=== PATIENT | female | born 1995 | race Native Hawaiian/Other Pacific Islander ===

== ENCOUNTER 2017-08-07 11:07 | Inpatient (IN) | payer SELFPAY ==
[2017-08-07] VITALS (10 sets, daily range): BP systolic 102–140; BP diastolic 58–85; PULSE 68–108; RESP 12–14; TEMP 92.7–98.2; O2SAT 100
[~2017-08-07] VITALS: Ht 165.1 cm; Wt 67.3 kg
[2017-08-07] MEDS ORDERED: PROPOFOL 1000 MG/100 ML INJ 100 ML ONE (11:15)
[2017-08-07] MEDS ORDERED: ROCURONIUM INJ 50 MG/5 ML VIAL ONE (11:16)
[2017-08-07] MEDS ORDERED: DIPHTH/TETANUS/ACEL PERTUSSIS (BOOSTER) 0.5 ML VIAL/PFS IM ONE (11:18)
[2017-08-07] MEDS ORDERED: ceFAZolin 2 GM PREMIX 50 ML ONE (11:18)
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
[2017-08-07] MEDS ORDERED: IOHEXOL 350 MG/ML 10 ML VIAL (for RAD DIAG) IVCONTRAST ONE (11:38)
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
[2017-08-07 11:49] LABS: AUTOMATED NEUTROPHIL # 8.5 TH/MM3 (1.8-7.7); BASOPHIL % 0.2 % (0.0-2.0); EOSINOPHIL % 0.2 % (0.0-4.0); HEMATOCRIT 21.9 % (35.0-46.0); LYMPH % 42.7 % (9.0-44.0); LYMPHOCYTE # 6.5 TH/MM3 (1.0-4.8); MEAN CELL VOLUME 62.1 FL (80.0-100.0); MEAN CORPUSCULAR HEMOGLOBIN 18.5 PG (27.0-34.0); MEAN PLATELET VOLUME 8.7 FL (7.0-11.0); MONO % 1.1 % (0.0-8.0); MONOCYTE # 0.2 TH/MM3 (0-0.9); NEUT % 55.8 % (16.0-70.0); PLATELET COUNT 288 TH/MM3 (150-450); RED BLOOD COUNT 3.53 MIL/MM3 (4.00-5.30); RED CELL DISTRIBUTION WIDTH 15.3 % (11.6-17.2); WHITE BLOOD COUNT 15.3 TH/MM3 (4.0-11.0)
[2017-08-07 11:51] LABS: MEAN CORPUSCULAR HGB CONC 29.8 % (32.0-36.0)
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
[2017-08-07 11:52] LABS: HEMOGLOBIN 6.5 GM/DL (11.6-15.3)
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
[2017-08-07] MEDS ORDERED: NORMOSOL R INJ 2,000 ML IV ONE (12:00)
[2017-08-07] MEDS ORDERED: ROCURONIUM INJ 50 MG/5 ML SYRINGE IV PUSH ONE (12:00)
[2017-08-07] MEDS ORDERED: SODIUM CHLORID 0.9% 500 ML INJ 500 ML IV ONE (12:00)
[2017-08-07] MEDS ORDERED: PHENYLEPH/NS 1000 MCG/10 ML SYR IV ONE (12:00)
[2017-08-07] MEDS ORDERED: LACTATED RINGER'S 1000 ML INJ 2,000 ML IV ONE (12:00)
[2017-08-07] MEDS ORDERED: PHENYLEPHRINE HCL 10 MG/ML VIAL IV ONE (12:00)
[2017-08-07 12:04] LABS: INTERNATIONAL NORMALIZED RATIO 1.3 RATIO; PROTHROMBIN TIME - PATIENT 13.6 SEC (9.8-11.6)
[2017-08-07] MEDS ORDERED: SODIUM CHLORIDE 0.9% IV ONE (12:05)
[2017-08-07] MEDS ORDERED: TRANEXAMIC ACID IV ONE (12:05)
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
[2017-08-07] MEDS ORDERED: SODIUM BICARBONATE 8.4% INJ 50 MEQ/50 ML SYR ONE ×3 (12:26→13:29)
[2017-08-07 12:28] LABS: BANDS 10 % (0-6); LYMPHOCYTES 38 % (9-44); MONOCYTES 1 % (0-8); NEUTROPHIL # MANUAL DIFF 9.3 TH/MM3 (1.8-7.7); OVALOCYTES 2+ (NORMAL); POLYS (SEG NEUTROPHILS) 51 % (16-70); TEARDROP RBCS 1+ (NORMAL)
[2017-08-07] MEDS ORDERED: PIPERACIL-TAZO 3.375 GM PREMIX 50 ML IV ONE (12:30)
[2017-08-07 13:02] LABS: INTERNATIONAL NORMALIZED RATIO 1.3 RATIO; PROTHROMBIN TIME - PATIENT 13.3 SEC (9.8-11.6)
[2017-08-07] MEDS ORDERED: DO NOT ADM ANY ANTICOAGULANT DRUGS PRN (13:28)
[2017-08-07] MEDS: PROPOFOL 1000 MG/100 ML IV PRN ×3 (13:30→18:30)
[2017-08-07 13:42] LABS: AUTOMATED NEUTROPHIL # 6.5 TH/MM3 (1.8-7.7); BASOPHIL % 0.1 % (0.0-2.0); EOSINOPHIL % 0.1 % (0.0-4.0); HEMATOCRIT 26.6 % (35.0-46.0); HEMOGLOBIN 9.1 GM/DL (11.6-15.3); LYMPH % 22.5 % (9.0-44.0); MEAN CELL VOLUME 76.5 FL (80.0-100.0); MEAN CORPUSCULAR HEMOGLOBIN 26.1 PG (27.0-34.0); MEAN CORPUSCULAR HGB CONC 34.2 % (32.0-36.0); MEAN PLATELET VOLUME 8.2 FL (7.0-11.0); MONO % 2.7 % (0.0-8.0); MONOCYTE # 0.2 TH/MM3 (0-0.9); NEUT % 74.6 % (16.0-70.0); PLATELET COUNT 107 TH/MM3 (150-450); RED BLOOD COUNT 3.48 MIL/MM3 (4.00-5.30); WHITE BLOOD COUNT 8.7 TH/MM3 (4.0-11.0)
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
[2017-08-07 14:09] LABS: OVALOCYTES 1+ (NORMAL)
[2017-08-07] MEDS ORDERED: MIDAZOLAM HCL 2 MG/2 ML VIAL ONE (14:35)
[2017-08-07] MEDS ORDERED: CALCIUM CHLORIDE INJ 2 GM in DEXTROSE 5% IN WATER 100ML INJ 100 ML IV ONE ×4 (15:00→18:00)
[2017-08-07 15:14] LABS: HEMATOCRIT 40.7 % (35.0-46.0); HEMOGLOBIN 14.4 GM/DL (11.6-15.3); MEAN CELL VOLUME 74.7 FL (80.0-100.0); MEAN CORPUSCULAR HEMOGLOBIN 26.4 PG (27.0-34.0); MEAN CORPUSCULAR HGB CONC 35.4 % (32.0-36.0); MEAN PLATELET VOLUME 8.1 FL (7.0-11.0); PLATELET COUNT 127 TH/MM3 (150-450); RED BLOOD COUNT 5.46 MIL/MM3 (4.00-5.30); WHITE BLOOD COUNT 8.2 TH/MM3 (4.0-11.0)
[2017-08-07 15:30] LABS: ALBUMIN 3.4 GM/DL (3.4-5.0); BICARBONATE 22.8 MEQ/L (21.0-32.0); CALCIUM 6.4 MG/DL (8.5-10.1); CREATININE 0.97 MG/DL (0.50-1.00); MAGNESIUM 1.8 MG/DL (1.5-2.5); PHOSPHORUS 1.7 MG/DL (2.5-4.9)
[2017-08-07] MEDS: fentaNYL DRIP 250 ML IV PRN (15:30)
[2017-08-07 15:32] LABS: TOTAL BILIRUBIN ADULT 1.7 MG/DL (0.2-1.0); TOTAL PROTEIN 7.1 GM/DL (6.4-8.2)
[2017-08-07 15:35] LABS: CALCIUM-PROTEIN CORRECTED 6.4 MG/DL (8.5-10.1)
[2017-08-07] MEDS ORDERED: SODIUM CHLOR 0.9% 1000 ML INJ 1,000 ML IV ONE (16:00)
[2017-08-07] MEDS ORDERED: ICU - D/C ICU ELECTROLYTE ORDERS PRN (16:15)
[2017-08-07] MEDS ORDERED: ICU - MAGNESIUM SULFATE 2 GM/NS 100 ML IV PRN ×2 (16:15)
[2017-08-07] MEDS ORDERED: ICU - MAGNESIUM OXIDE 400 MG TAB PO PRN (16:15)
[2017-08-07] MEDS ORDERED: ICU - POTASSIUM PHOSPHATE 30 MMOL/NS 250 ML IV PRN ×2 (16:15)
[2017-08-07] MEDS ORDERED: ICU - POTASSIUM PHOSPHATE MONOBASIC 500 MG TAB PO PRN (16:15)
[2017-08-07] MEDS ORDERED: ICU - SODIUM PHOSPHATE 30 MMOL/NS 250 ML IV PRN ×2 (16:15)
[2017-08-07] MEDS ORDERED: ICU - POTASSIUM CHLORIDE/AQUEOUS SOLN 20 MEQ/100 ML IVPB IV PRN (16:15)
[2017-08-07] MEDS ORDERED: POTASSIUM CHLORIDE 25 MEQ EFFERVESCENT TAB PO PRN (16:15)
[2017-08-07] MEDS ORDERED: ICU - MAGNESIUM SULFATE 4 GM/NS 100 ML IV PRN ×2 (16:15)
[2017-08-07] MEDS ORDERED: ICU - CALL ORDERING PHYSICIAN PRN (16:15)
[2017-08-07] MEDS: SODIUM CHLOR 0.9% 1000 ML INJ 1,000 ML IV SCH (16:32)
[2017-08-07] MEDS: ICU - POTASSIUM CHLORIDE/AQUEOUS SOLN 40 MEQ/100 ML IVPB IV PRN ×2 (16:33→22:29)
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
[2017-08-07] MEDS ORDERED: ROCURONIUM INJ 50 MG/5 ML VIAL IV PRN (17:00)
[2017-08-07] MEDS ORDERED: PROPOFOL 1000 MG/100 ML INJ 100 ML IV PRN (17:15)
[2017-08-07] MEDS: PANTOPRAZOLE SODIUM 40 MG VIAL IV PUSH SCH (17:15)
[2017-08-07] MEDS: PIPERACIL-TAZO 4.5 GM PREMIX 100 ML IV SCH ×2 (18:00→23:54)
[2017-08-07] MEDS ORDERED: NOREPINEPHRINE 4 MG/D5W 250 ML IV PRN (18:00)
[2017-08-07] MEDS: CHLORHEXIDINE 0.12% (ORAL KIT) 15 ML CUP MT SCH (20:00)
[2017-08-07 20:17] LABS: ALKALINE PHOSPHATASE 72 U/L (45-117); ALT (GPT) 520 U/L (10-53); AST (GOT) 855 U/L (15-37); BICARBONATE 22.8 MEQ/L (21.0-32.0); BLOOD UREA NITROGEN 9 MG/DL (7-18); CALCIUM 7.5 MG/DL (8.5-10.1); CHLORIDE 113 MEQ/L (98-107); CREATININE 0.92 MG/DL (0.50-1.00); GLOMERULAR FILTRATION RATE 53 ML/MIN (>89); GLUCOSE,RANDOM 115 MG/DL (74-106); SODIUM (NA) 148 MEQ/L (136-145); TOTAL BILIRUBIN ADULT 2.1 MG/DL (0.2-1.0)
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
[2017-08-08] VITALS (13 sets, daily range): BP systolic 94–118; BP diastolic 54–69; PULSE 70–108; RESP 14; TEMP 97–99.1; O2SAT 99–100
[2017-08-08] MEDS: PROPOFOL 1000 MG/100 ML IV PRN ×3 (02:39→11:30)
[2017-08-08] MEDS: SODIUM CHLOR 0.9% 1000 ML INJ 1,000 ML IV SCH ×3 (05:52→22:01)
[2017-08-08] MEDS: PIPERACIL-TAZO 4.5 GM PREMIX 100 ML IV SCH ×3 (05:52→19:00)
--- NOTE | 2017-08-08 06:22 | RADRPT ---
EXAM DATE/TIME: 08/08/2017 04:36 [facility] COMPARISON: CT ABDOMEN & PELVIS W CONTRAST, August 07, 2017, 11:21. CHEST SINGLE AP, August 07, 2017, 13:35. INDICATIONS : Shortness of breath. MEDICAL HISTORY : Unobtainable. SURGICAL HISTORY : Unobtainable. ENCOUNTER: Subsequent ACUITY: 2 days PAIN SCORE: Non-responsive. LOCATION: Bilateral chest FINDINGS: Portable AP view of the chest demonstrates a normal-sized cardiac silhouette. ETT, right IJ line, and nasogastric tube remain present. EKG lines overlie the patient. Lungs are underinflated with mild at electasis at the lung bases. No effusion or pneumothorax is identified. The bones demonstrate no acut e abnormality. Multiple ribbonlike areas of high density are visualized in the upper and mid abdomen, likely 4 in total. CONCLUSION: 1. Mild atelectasis at the lung bases. Otherwise, no acute cardiopulmonary abnormality is identified. 2. There are 4 ribbonlike densities overlying the abdomen, the 2 superior ones are stable from yester day's examination. These represent retained surgical sponges. Given the patient's trauma and recent s urgery these may have been left intentionally but suggest correlating clinically. Ramon Roy MD on August 08, 2017 at 6:18 Board Certified Radiologist. This report was verified electronically.
[2017-08-08 06:37] LABS: AUTOMATED NEUTROPHIL # 7.3 TH/MM3 (1.8-7.7); BASOPHIL % 0.1 % (0.0-2.0); EOSINOPHIL % 0.2 % (0.0-4.0); HEMATOCRIT 39.2 % (35.0-46.0); HEMOGLOBIN 13.6 GM/DL (11.6-15.3); LYMPH % 13.2 % (9.0-44.0); LYMPHOCYTE # 1.2 TH/MM3 (1.0-4.8); MEAN CELL VOLUME 74.9 FL (80.0-100.0); MEAN CORPUSCULAR HGB CONC 34.8 % (32.0-36.0); MEAN PLATELET VOLUME 8.5 FL (7.0-11.0); MONOCYTE # 0.5 TH/MM3 (0-0.9); NEUT % 80.5 % (16.0-70.0); PLATELET COUNT 129 TH/MM3 (150-450); RED BLOOD COUNT 5.23 MIL/MM3 (4.00-5.30); RED CELL DISTRIBUTION WIDTH 25.1 % (11.6-17.2)
[2017-08-08 06:54] LABS: ALBUMIN 2.8 GM/DL (3.4-5.0); AST (GOT) 732 U/L (15-37); BICARBONATE 19.8 MEQ/L (21.0-32.0); BLOOD UREA NITROGEN 8 MG/DL (7-18); CALCIUM 7.8 MG/DL (8.5-10.1); CHLORIDE 114 MEQ/L (98-107); CREATININE 0.89 MG/DL (0.50-1.00); GLOMERULAR FILTRATION RATE 55 ML/MIN (>89); GLUCOSE,RANDOM 98 MG/DL (74-106); SODIUM (NA) 146 MEQ/L (136-145)
[2017-08-08 06:55] LABS: ALT (GPT) 508 U/L (10-53)
[2017-08-08 06:57] LABS: ALKALINE PHOSPHATASE 83 U/L (45-117); TOTAL BILIRUBIN ADULT 3.1 MG/DL (0.2-1.0); TOTAL PROTEIN 5.9 GM/DL (6.4-8.2)
[2017-08-08 07:24] LABS: BANDS 12 % (0-6); LYMPHOCYTES 12 % (9-44); MONOCYTES 2 % (0-8); NEUTROPHIL # MANUAL DIFF 7.7 TH/MM3 (1.8-7.7); POLYS (SEG NEUTROPHILS) 74 % (16-70)
[2017-08-08] MEDS: CHLORHEXIDINE 0.12% (ORAL KIT) 15 ML CUP MT SCH ×2 (08:46→20:00)
[2017-08-08] MEDS: MAGNESIUM HYDROXIDE SUSP 30 ML CUP PO SCH ×2 (08:46→21:00)
[2017-08-08] MEDS: DOCUSATE SODIUM 50 MG/SENNA 8.6 MG TAB PO SCH ×2 (08:46→21:00)
[2017-08-08] MEDS: PANTOPRAZOLE SODIUM 40 MG VIAL IV PUSH SCH ×2 (08:46→21:40)
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
--- NOTE | 2017-08-08 09:06 | RADRPT ---
EXAM DATE/TIME: 08/07/2017 11:21 [facility] COMPARISON: No previous studies available for comparison. INDICATIONS : Facial fractures CTDIvol (mGy) ; Reconstructed from previous dataset, no dose MEDICAL HISTORY : None SURGICAL HISTORY : None. ENCOUNTER: Initial ACUITY: 1 day PAIN SCALE: Non-responsive LOCATION: facial FINDINGS: 3-D reconstructions were obtained of the face. The fracture through the angle of the mandible. His of fracture of the coronoid process on the left with amenable dislocated anteriorly. The right side of the mandible is intact. Maxilla and orbital rims are intact CONCLUSION: Fractured end of the mandible and coronoid left process. The mandible is dislocated anteriorly. Kg Ibanez MD FACR on August 08, 2017 at 9:02 Board Certified Radiologist. This report was verified electronically.
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
[2017-08-08] MEDS ORDERED: PHENYLEPH/NS 1000 MCG/10 ML SYR IV ONE (12:00)
[2017-08-08] MEDS ORDERED: LACTATED RINGER'S 1000 ML INJ 1,000 ML IV ONE (12:00)
[2017-08-08] MEDS ORDERED: VECURONIUM BROMIDE 10 MG VIAL IV ONE (12:00)
[2017-08-08] MEDS ORDERED: SODIUM CHLORIDE 0.9% 20 ML VIAL IV ONE (12:00)
[2017-08-08] MEDS ORDERED: DEXAMETHASONE SOD PHOS 4 MG/ML VIAL IV ONE (12:00)
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
[2017-08-08] MEDS: fentaNYL DRIP 250 ML IV PRN (14:21)
[2017-08-08] MEDS ORDERED: LIDOCAINE 1%/EPINEPHrine 1:100,000 SOLN 30 ML VIAL ONE (14:32)
[2017-08-08] MEDS ORDERED: CHLORHEXIDINE GLUCONATE 0.12% 15 ML CUP ONE (14:32)
[2017-08-08] MEDS ORDERED: BUPIVACAINE/EPINEPHRINE 0.25% 50 ML VIAL ONE (14:51)
[2017-08-08] MEDS ORDERED: BALANCED SALT SOLN OPHT IRRIG 15 ML BTL ONE (14:51)
[2017-08-08] MEDS ORDERED: BACITRACIN TOP OINT 15 GM TUBE ONE (14:51)
--- NOTE | 2017-08-08 17:05 | RADRPT ---
EXAM DATE/TIME: 08/08/2017 16:34 [facility] COMPARISON: CT ABDOMEN & PELVIS W CONTRAST, August 07, 2017, 11:21. INDICATIONS : Instrument count. MEDICAL HISTORY : None. SURGICAL HISTORY : None. ENCOUNTER: Initial ACUITY: 1 day PAIN SCORE: Non-responsive. LOCATION: abdomen. FINDINGS: Negative for radiopaque foreign body. Surgical drain evident. CONCLUSION: Negative for radiopaque foreign body Kg Ibanez MD FACR on August 08, 2017 at 16:53 Board Certified Radiologist. This report was verified electronically.
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
[2017-08-08] MEDS ORDERED: MIDAZOLAM HCL 2 MG/2 ML VIAL ONE (20:36)
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
[2017-08-08] MEDS: methylPREDNISolone SOD SUCC 125 MG/2 ML VIAL IV PUSH SCH (21:40)
[2017-08-09] VITALS (17 sets, daily range): BP systolic 92–118; BP diastolic 56–82; PULSE 60–84; RESP 11–14; TEMP 96.8–98.7; O2SAT 96–100
[2017-08-09] MEDS: PIPERACIL-TAZO 4.5 GM PREMIX 100 ML IV SCH ×2 (00:18→05:05)
[2017-08-09] MEDS: PROPOFOL 1000 MG/100 ML IV PRN ×3 (00:33→09:24)
[2017-08-09] MEDS: methylPREDNISolone SOD SUCC 125 MG/2 ML VIAL IV PUSH SCH ×2 (04:02→09:23)
[2017-08-09 05:16] LABS: AUTOMATED NEUTROPHIL # 8.3 TH/MM3 (1.8-7.7); BASOPHIL % 0.1 % (0.0-2.0); HEMOGLOBIN 11.9 GM/DL (11.6-15.3); LYMPH % 7.5 % (9.0-44.0); LYMPHOCYTE # 0.7 TH/MM3 (1.0-4.8); MEAN CELL VOLUME 75.1 FL (80.0-100.0); MEAN CORPUSCULAR HEMOGLOBIN 26.4 PG (27.0-34.0); MEAN CORPUSCULAR HGB CONC 35.1 % (32.0-36.0); MEAN PLATELET VOLUME 8.8 FL (7.0-11.0); MONO % 1.8 % (0.0-8.0); MONOCYTE # 0.2 TH/MM3 (0-0.9); NEUT % 90.6 % (16.0-70.0); PLATELET COUNT 91 TH/MM3 (150-450); RED BLOOD COUNT 4.52 MIL/MM3 (4.00-5.30); RED CELL DISTRIBUTION WIDTH 25.4 % (11.6-17.2); WHITE BLOOD COUNT 9.1 TH/MM3 (4.0-11.0)
[2017-08-09] MEDS ORDERED: SODIUM BICARBONATE 8.4% SOLN 50 MEQ/50 ML VIAL IV ONE (05:30)
[2017-08-09 05:43] LABS: ALBUMIN 2.2 GM/DL (3.4-5.0); BICARBONATE 18.9 MEQ/L (21.0-32.0); CALCIUM 7.2 MG/DL (8.5-10.1); CALCIUM-PROTEIN CORRECTED 8.3 MG/DL (8.5-10.1); CREATININE 0.74 MG/DL (0.50-1.00); TOTAL BILIRUBIN ADULT 3.1 MG/DL (0.2-1.0)
--- NOTE | 2017-08-09 06:41 | RADRPT ---
EXAM DATE/TIME: 08/09/2017 05:04 [facility] COMPARISON: CHEST SINGLE AP, August 08, 2017, 4:36. INDICATIONS : Short of breath. MEDICAL HISTORY : None. SURGICAL HISTORY : None. ENCOUNTER: Subsequent ACUITY: 3 days PAIN SCORE: Non-responsive. LOCATION: Bilateral chest FINDINGS: Portable AP view of the chest demonstrates a normal-sized cardiac silhouette. ETT and right IJ centra l line remain present. The nasogastric tube is no longer present. Roc overlie the abdomen and yossi gical drain overlies the upper abdomen. The retained surgical sponges documented on the prior study a re no longer present. There is mild hazy opacity at the right lung base. No pleural effusion or pneum othorax is identified. Bones demonstrate no acute finding. CONCLUSION: There is increased hazy opacity at the right lung base which could represent atelectasis or airspace consolidation. Ramon Roy MD on August 09, 2017 at 6:38 Board Certified Radiologist. This report was verified electronically.
[2017-08-09] MEDS: CHLORHEXIDINE 0.12% (ORAL KIT) 15 ML CUP MT SCH ×2 (08:00→20:00)
[2017-08-09 08:38] LABS: OVALOCYTES 1+ (NORMAL)
[2017-08-09] MEDS: MAGNESIUM HYDROXIDE SUSP 30 ML CUP PO SCH ×2 (09:00→20:59)
[2017-08-09] MEDS: DOCUSATE SODIUM 50 MG/SENNA 8.6 MG TAB PO SCH ×2 (09:00→21:00)
[2017-08-09] MEDS: PANTOPRAZOLE SODIUM 40 MG VIAL IV PUSH SCH ×2 (09:23→20:59)
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
[2017-08-09] MEDS: ENOXAPARIN SODIUM 40 MG/0.4 ML SYRINGE SQ SCH ×2 (12:18→22:31)
[2017-08-09] MEDS: SODIUM CHLOR 0.9% 1000 ML INJ 1,000 ML IV SCH ×2 (12:18→23:12)
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
[2017-08-09] MEDS: DEXMEDETOMIDINE 200 MCG in NS 48 ML IV PRN ×2 (15:27→16:30)
[2017-08-09] MEDS ORDERED: methylPREDNISolone ACETATE 80 MG/ML VIAL IM ONE (16:00)
[2017-08-09] MEDS: RESP: ALBUTEROL 2.5 MG/IPRATROPIUM 0.5 MG NEB (PRN) NEB (22:55)
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
[2017-08-10] VITALS (14 sets, daily range): BP systolic 109–127; BP diastolic 58–80; PULSE 48–112; RESP 18–32; TEMP 97.5–99.9; O2SAT 92–100
[2017-08-10] MEDS: fentaNYL DRIP 250 ML IV PRN (00:13)
[2017-08-10] MEDS: DEXMEDETOMIDINE 200 MCG in NS 48 ML IV PRN ×2 (00:15→04:15)
[2017-08-10] MEDS ORDERED: SODIUM CHLOR 0.9% 1000 ML INJ 500 ML IV ONE (01:00)
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
[2017-08-10] MEDS ORDERED: SODIUM CHLORID 0.9% 500 ML INJ 500 ML IV ONE (05:15)
[2017-08-10] MEDS: RESP: ALBUTEROL 2.5 MG/IPRATROPIUM 0.5 MG NEB (PRN) NEB (06:02)
[2017-08-10 06:11] LABS: AUTOMATED NEUTROPHIL # 10.7 TH/MM3 (1.8-7.7); HEMATOCRIT 32.2 % (35.0-46.0); LYMPH % 7.5 % (9.0-44.0); LYMPHOCYTE # 0.9 TH/MM3 (1.0-4.8); MEAN CELL VOLUME 75.5 FL (80.0-100.0); MEAN CORPUSCULAR HEMOGLOBIN 25.8 PG (27.0-34.0); MEAN CORPUSCULAR HGB CONC 34.2 % (32.0-36.0); MEAN PLATELET VOLUME 9.6 FL (7.0-11.0); MONO % 3.6 % (0.0-8.0); MONOCYTE # 0.4 TH/MM3 (0-0.9); NEUT % 88.9 % (16.0-70.0); PLATELET COUNT 97 TH/MM3 (150-450); RED BLOOD COUNT 4.27 MIL/MM3 (4.00-5.30); RED CELL DISTRIBUTION WIDTH 24.9 % (11.6-17.2)
[2017-08-10 06:24] LABS: ALBUMIN 2.4 GM/DL (3.4-5.0); BICARBONATE 21.4 MEQ/L (21.0-32.0); CALCIUM 7.1 MG/DL (8.5-10.1); CALCIUM-PROTEIN CORRECTED 7.8 MG/DL (8.5-10.1); CREATININE 0.58 MG/DL (0.50-1.00); TOTAL BILIRUBIN ADULT 2.5 MG/DL (0.2-1.0); TOTAL PROTEIN 5.7 GM/DL (6.4-8.2)
[2017-08-10 07:08] LABS: BANDS 17 % (0-6); LYMPHOCYTES 1 % (9-44); MONOCYTES 3 % (0-8); NEUTROPHIL # MANUAL DIFF 11.5 TH/MM3 (1.8-7.7); POLYS (SEG NEUTROPHILS) 79 % (16-70)
[2017-08-10 07:09] LABS: OVALOCYTES 1+ (NORMAL)
[2017-08-10] MEDS ORDERED: MORPHINE SULFATE 4 MG/ML INJ SQ PRN (07:15)
[2017-08-10] MEDS ORDERED: oxyCODONE HCL ORAL CONC 5 MG/0.25 ML SYRINGE PO PRN (07:15)
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
[2017-08-10] MEDS ORDERED: LACTATED RINGER'S 1000 ML INJ 1,000 ML IV ONE (08:15)
[2017-08-10] MEDS: MAGNESIUM HYDROXIDE SUSP 30 ML CUP PO SCH ×2 (09:00→20:09)
[2017-08-10] MEDS: DOCUSATE SODIUM 50 MG/SENNA 8.6 MG TAB PO SCH ×2 (09:00→20:09)
[2017-08-10] MEDS: LACTATED RINGER'S 1000 ML INJ 1,000 ML IV SCH ×3 (09:58→23:57)
[2017-08-10] MEDS: CHLORHEXIDINE GLUCONATE 0.12% 15 ML CUP SWISH-SPIT SCH ×2 (10:06→20:09)
[2017-08-10] MEDS: PANTOPRAZOLE SODIUM 40 MG VIAL IV PUSH SCH ×2 (10:06→20:08)
[2017-08-10] MEDS: ENOXAPARIN SODIUM 40 MG/0.4 ML SYRINGE SQ SCH ×2 (10:07→20:08)
[2017-08-10] MEDS ORDERED: MORPHINE SULFATE 2 MG/ML INJ SQ PRN (10:15)
[2017-08-10] MEDS: MORPHINE SULFATE 2 MG/ML INJ IV PRN ×2 (10:33→23:58)
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
[2017-08-10] MEDS ORDERED: MORPHINE SULFATE 2 MG/ML INJ IV PUSH ONE (13:00)
[2017-08-10] MEDS ORDERED: ALBUMIN 5% INJ 500 ML IV SCH (13:15)
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
[2017-08-10] MEDS: MORPHINE SULFATE 4 MG/ML INJ IV PUSH PRN ×2 (16:58→20:08)
[2017-08-10] MEDS: RESP: ALBUTEROL 2.5 MG/IPRATROPIUM 0.5 MG NEB (SCH) NEB (20:11)
[2017-08-10] MEDS ORDERED: ONDANSETRON HCL 4 MG/2 ML VIAL IV PUSH PRN (20:15)
[2017-08-11] VITALS (10 sets, daily range): BP systolic 106–120; BP diastolic 71–79; PULSE 69–106; RESP 20–35; TEMP 98.3–101.1; O2SAT 92–98
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
[2017-08-11 04:08] LABS: AUTOMATED NEUTROPHIL # 9.2 TH/MM3 (1.8-7.7); EOSINOPHIL % 0.1 % (0.0-4.0); HEMATOCRIT 27.4 % (35.0-46.0); HEMOGLOBIN 9.5 GM/DL (11.6-15.3); LYMPH % 13.9 % (9.0-44.0); LYMPHOCYTE # 1.6 TH/MM3 (1.0-4.8); MEAN CELL VOLUME 75.3 FL (80.0-100.0); MEAN CORPUSCULAR HGB CONC 34.6 % (32.0-36.0); MEAN PLATELET VOLUME 8.7 FL (7.0-11.0); MONO % 5.3 % (0.0-8.0); MONOCYTE # 0.6 TH/MM3 (0-0.9); NEUT % 80.7 % (16.0-70.0); PLATELET COUNT 111 TH/MM3 (150-450); RED BLOOD COUNT 3.64 MIL/MM3 (4.00-5.30); RED CELL DISTRIBUTION WIDTH 25.5 % (11.6-17.2); WHITE BLOOD COUNT 11.4 TH/MM3 (4.0-11.0)
[2017-08-11 04:29] LABS: ALBUMIN 2.8 GM/DL (3.4-5.0); ALT (GPT) 286 U/L (9-42); AST (GOT) 204 U/L (16-38); BLOOD UREA NITROGEN 14 MG/DL (7-18); CALCIUM 7.5 MG/DL (8.5-10.1); CHLORIDE 116 MEQ/L (98-107); CREATININE 0.54 MG/DL (0.50-1.00); GLOMERULAR FILTRATION RATE 144 ML/MIN (>89); GLUCOSE,RANDOM 83 MG/DL (74-106); SODIUM (NA) 146 MEQ/L (136-145)
[2017-08-11 04:31] LABS: ALKALINE PHOSPHATASE 73 U/L (45-117); TOTAL BILIRUBIN ADULT 2.3 MG/DL (0.2-1.0); TOTAL PROTEIN 5.6 GM/DL (6.4-8.2)
[2017-08-11] MEDS: MORPHINE SULFATE 2 MG/ML INJ IV PRN (04:45)
[2017-08-11 05:43] LABS: BANDS 4 % (0-6); DOHLE BODIES PRESENT (NONE SEEN); LYMPHOCYTES 9 % (9-44); MONOCYTES 2 % (0-8); NEUTROPHIL # MANUAL DIFF 10.1 TH/MM3 (1.8-7.7); POLYS (SEG NEUTROPHILS) 85 % (16-70)
[2017-08-11 05:44] LABS: ACANTHOCYTES OCC (NORMAL); OVALOCYTES 1+ (NORMAL)
[2017-08-11] MEDS: RESP: ALBUTEROL 2.5 MG/IPRATROPIUM 0.5 MG NEB (SCH) NEB ×4 (07:14→19:21)
[2017-08-11] MEDS: MORPHINE SULFATE 4 MG/ML INJ IV PUSH PRN ×4 (07:39→22:37)
[2017-08-11] MEDS: LACTATED RINGER'S 1000 ML INJ 1,000 ML IV SCH ×2 (08:15→16:49)
[2017-08-11] MEDS: REMOVE OLD PATCH T-DERMAL SCH (08:30)
[2017-08-11] MEDS ORDERED: BISACODYL 10 MG SUPP RECTAL ONE (08:30)
[2017-08-11] MEDS: MAGNESIUM HYDROXIDE SUSP 30 ML CUP PO SCH ×2 (09:00→21:00)
[2017-08-11] MEDS: CHLORHEXIDINE GLUCONATE 0.12% 15 ML CUP SWISH-SPIT SCH ×2 (09:00→21:00)
[2017-08-11] MEDS: DOCUSATE SODIUM 50 MG/SENNA 8.6 MG TAB PO SCH ×2 (09:00→21:00)
[2017-08-11] MEDS: PANTOPRAZOLE SODIUM 40 MG VIAL IV PUSH SCH ×2 (09:09→22:24)
[2017-08-11] MEDS: LIDOCAINE HCL 5% PATCH T-DERMAL SCH (09:10)
[2017-08-11] MEDS: fentaNYL 25 MCG/HR PATCH T-DERMAL SCH (09:10)
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
[2017-08-11] MEDS ORDERED: MORPHINE SULFATE 2 MG/ML INJ IV PRN (10:15)
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
[2017-08-11] MEDS: ENOXAPARIN SODIUM 40 MG/0.4 ML SYRINGE SQ SCH ×2 (11:05→22:38)
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
[2017-08-11] MEDS: ACETAMINOPHEN 1000 MG/100 ML 100 ML IV PRN (17:18)
[2017-08-11] MEDS: REMOVE OLD LIDOCAINE PATCH T-DERMAL SCH (21:00)
[2017-08-12] VITALS (9 sets, daily range): BP systolic 112–142; BP diastolic 70–91; PULSE 71–98; RESP 16–22; TEMP 98.4–101.5; O2SAT 96–100
[2017-08-12] MEDS: LACTATED RINGER'S 1000 ML INJ 1,000 ML IV SCH ×3 (03:11→21:09)
[2017-08-12] MEDS: MORPHINE SULFATE 4 MG/ML INJ IV PUSH PRN ×6 (03:11→21:05)
[2017-08-12 04:19] LABS: AUTOMATED NEUTROPHIL # 10.5 TH/MM3 (1.8-7.7); BASOPHIL % 0.2 % (0.0-2.0); EOSINOPHIL % 0.2 % (0.0-4.0); HEMATOCRIT 29.1 % (35.0-46.0); HEMOGLOBIN 9.9 GM/DL (11.6-15.3); LYMPH % 11.7 % (9.0-44.0); LYMPHOCYTE # 1.5 TH/MM3 (1.0-4.8); MEAN CELL VOLUME 76.1 FL (80.0-100.0); MEAN CORPUSCULAR HGB CONC 34.1 % (32.0-36.0); MEAN PLATELET VOLUME 7.9 FL (7.0-11.0); MONO % 5.6 % (0.0-8.0); MONOCYTE # 0.7 TH/MM3 (0-0.9); NEUT % 82.3 % (16.0-70.0); PLATELET COUNT 110 TH/MM3 (150-450); RED BLOOD COUNT 3.83 MIL/MM3 (4.00-5.30); RED CELL DISTRIBUTION WIDTH 25.5 % (11.6-17.2); WHITE BLOOD COUNT 12.8 TH/MM3 (4.0-11.0)
[2017-08-12 04:35] LABS: ALBUMIN 2.6 GM/DL (3.4-5.0); ALT (GPT) 215 U/L (9-42); AST (GOT) 123 U/L (16-38); BICARBONATE 21.7 MEQ/L (21.0-32.0); BLOOD UREA NITROGEN 10 MG/DL (7-18); CALCIUM 7.8 MG/DL (8.5-10.1); CHLORIDE 111 MEQ/L (98-107); CREATININE 0.39 MG/DL (0.50-1.00); GLOMERULAR FILTRATION RATE 210 ML/MIN (>89); GLUCOSE,RANDOM 78 MG/DL (74-106); SODIUM (NA) 141 MEQ/L (136-145)
[2017-08-12 04:38] LABS: ALKALINE PHOSPHATASE 84 U/L (45-117); TOTAL BILIRUBIN ADULT 2.2 MG/DL (0.2-1.0); TOTAL PROTEIN 5.5 GM/DL (6.4-8.2)
[2017-08-12 05:59] LABS: BANDS 1 % (0-6); LYMPHOCYTES 6 % (9-44); METAMYELOCYTES 1 % (0-1); MONOCYTES 4 % (0-8); MYELOCYTES 2 % (0-0); NEUTROPHIL # MANUAL DIFF 11.5 TH/MM3 (1.8-7.7); POLYS (SEG NEUTROPHILS) 86 % (16-70)
[2017-08-12] MEDS: RESP: ALBUTEROL 2.5 MG/IPRATROPIUM 0.5 MG NEB (SCH) NEB ×4 (09:14→20:08)
[2017-08-12] MEDS: MAGNESIUM HYDROXIDE SUSP 30 ML CUP PO SCH ×3 (09:30→21:04)
[2017-08-12] MEDS: CHLORHEXIDINE GLUCONATE 0.12% 15 ML CUP SWISH-SPIT SCH ×3 (09:30→21:00)
[2017-08-12] MEDS: DOCUSATE SODIUM 50 MG/SENNA 8.6 MG TAB PO SCH ×3 (09:30→21:08)
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
[2017-08-12] MEDS: PANTOPRAZOLE SODIUM 40 MG VIAL IV PUSH SCH ×2 (09:43→21:08)
[2017-08-12] MEDS: LIDOCAINE HCL 5% PATCH T-DERMAL SCH (09:46)
[2017-08-12] MEDS: ENOXAPARIN SODIUM 40 MG/0.4 ML SYRINGE SQ SCH ×2 (09:55→22:59)
--- NOTE | 2017-08-12 12:37 | RADRPT ---
EXAM DATE/TIME: 08/12/2017 11:39 [facility] COMPARISON: No previous studies available for comparison. INDICATIONS : Left arm swelling. MEDICAL HISTORY : Unable to obtain. SURGICAL HISTORY : Unable to obtain. ENCOUNTER: Initial ACUITY: 1 day PAIN SCORE: 8/10 LOCATION: Left arm. FINDINGS: Intraluminal thrombus is identified in the basilic vein which is noncompressible. There is no flow id entified on Doppler. There is spontaneous flow documented in the brachial, cephalic, axillary, and subclavian veins. The vessels are compressible and augmentation response is documented. No filling defects are seen. The flow is phasic with respiration. Direction of flow in the jugular vein is caudal. CONCLUSION: 1. Superficial venous thrombosis involving the left basilic vein. 2. No evidence of DVT. Hollis Loo MD on August 12, 2017 at 12:33 Board Certified Radiologist. This report was verified electronically.
[2017-08-12] MEDS ORDERED: WALKER WHEELS/F1 MIS (15:45)
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
[2017-08-12] MEDS: REMOVE OLD LIDOCAINE PATCH T-DERMAL SCH (21:00)
[2017-08-12] MEDS: ACETAMINOPHEN 1000 MG/100 ML 100 ML IV PRN (21:05)
[2017-08-13] VITALS (12 sets, daily range): BP systolic 122–143; BP diastolic 74–88; PULSE 22–140; RESP 12–30; TEMP 99.3–101.9; O2SAT 92–100
[2017-08-13] MEDS: MORPHINE SULFATE 4 MG/ML INJ IV PUSH PRN ×5 (02:40→18:51)
[2017-08-13 04:53] LABS: AUTOMATED NEUTROPHIL # 13.2 TH/MM3 (1.8-7.7); BASOPHIL % 0.2 % (0.0-2.0); EOSINOPHIL # 0.1 TH/MM3 (0-0.4); EOSINOPHIL % 0.3 % (0.0-4.0); HEMATOCRIT 33.8 % (35.0-46.0); HEMOGLOBIN 11.3 GM/DL (11.6-15.3); LYMPH % 8.7 % (9.0-44.0); LYMPHOCYTE # 1.3 TH/MM3 (1.0-4.8); MEAN CELL VOLUME 76.8 FL (80.0-100.0); MEAN CORPUSCULAR HEMOGLOBIN 25.7 PG (27.0-34.0); MEAN CORPUSCULAR HGB CONC 33.5 % (32.0-36.0); MEAN PLATELET VOLUME 7.9 FL (7.0-11.0); MONO % 5.4 % (0.0-8.0); MONOCYTE # 0.8 TH/MM3 (0-0.9); NEUT % 85.4 % (16.0-70.0); PLATELET COUNT 108 TH/MM3 (150-450); RED CELL DISTRIBUTION WIDTH 25.1 % (11.6-17.2); WHITE BLOOD COUNT 15.5 TH/MM3 (4.0-11.0)
[2017-08-13 05:03] LABS: ALT (GPT) 194 U/L (9-42)
[2017-08-13 05:05] LABS: ALKALINE PHOSPHATASE 106 U/L (45-117); TOTAL BILIRUBIN ADULT 2.7 MG/DL (0.2-1.0); TOTAL PROTEIN 6.3 GM/DL (6.4-8.2)
[2017-08-13 05:07] LABS: ALBUMIN 2.9 GM/DL (3.4-5.0); AST (GOT) 110 U/L (16-38); BICARBONATE 19.1 MEQ/L (21.0-32.0); BLOOD UREA NITROGEN 8 MG/DL (7-18); CALCIUM 8.4 MG/DL (8.5-10.1); CHLORIDE 104 MEQ/L (98-107); CREATININE 0.51 MG/DL (0.50-1.00); GLOMERULAR FILTRATION RATE 154 ML/MIN (>89); GLUCOSE,RANDOM 63 MG/DL (74-106); SODIUM (NA) 136 MEQ/L (136-145)
[2017-08-13] MEDS: ACETAMINOPHEN 1000 MG/100 ML 100 ML IV PRN (08:36)
[2017-08-13] MEDS: DOCUSATE SODIUM 50 MG/SENNA 8.6 MG TAB PO SCH ×3 (08:37→21:41)
[2017-08-13] MEDS: CHLORHEXIDINE GLUCONATE 0.12% 15 ML CUP SWISH-SPIT SCH ×2 (08:37→21:41)
[2017-08-13] MEDS: PANTOPRAZOLE SODIUM 40 MG VIAL IV PUSH SCH ×2 (08:37→21:41)
[2017-08-13] MEDS: MAGNESIUM HYDROXIDE SUSP 30 ML CUP PO SCH ×2 (08:37→21:42)
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
[2017-08-13] MEDS: LIDOCAINE HCL 5% PATCH T-DERMAL SCH (08:38)
[2017-08-13] MEDS: BACITRACIN TOP OINT 15 GM TUBE TOPICAL SCH (08:38)
[2017-08-13] MEDS: RESP: ALBUTEROL 2.5 MG/IPRATROPIUM 0.5 MG NEB (SCH) NEB ×4 (09:27→20:06)
[2017-08-13] MEDS: ENOXAPARIN SODIUM 40 MG/0.4 ML SYRINGE SQ SCH ×2 (12:09→21:42)
[2017-08-13] MEDS: LACTATED RINGER'S 1000 ML INJ 1,000 ML IV SCH (15:10)
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
[2017-08-13] MEDS: REMOVE OLD LIDOCAINE PATCH T-DERMAL SCH (21:00)
[2017-08-14] VITALS (11 sets, daily range): BP systolic 117–144; BP diastolic 70–93; PULSE 61–132; RESP 15–24; TEMP 97.6–101.7; O2SAT 94–100
[2017-08-14] MEDS: MORPHINE SULFATE 4 MG/ML INJ IV PUSH PRN (02:41)
[2017-08-14] MEDS ORDERED: oxyCODONE HCL ORAL CONC 5 MG/0.25 ML SYRINGE PO PRN (06:15)
--- NOTE | 2017-08-14 06:30 | RADRPT ---
EXAM DATE/TIME: 08/14/2017 06:15 [place] COMPARISON: CHEST SINGLE AP, August 11, 2017, 2:29. INDICATIONS : Short of breath. MEDICAL HISTORY : None. SURGICAL HISTORY : None. ENCOUNTER: Subsequent ACUITY: 4 - 6 days PAIN SCORE: Non-responsive. LOCATION: Bilateral chest FINDINGS: Bilateral pleural effusions and bibasilar infiltrates have shown no significant change. Heart is norm al in size. Right anterolateral seventh rib fracture is unchanged. CONCLUSION: Unchanged bilateral pleural effusions and bibasilar infiltrates. Right seventh rib fracture. Cruz Paniagua Jr., MD on August 14, 2017 at 6:28 Board Certified Radiologist. This report was verified electronically.
[2017-08-14] MEDS: REMOVE OLD PATCH T-DERMAL SCH (08:30)
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
[2017-08-14] MEDS: DOCUSATE SODIUM 50 MG/SENNA 8.6 MG TAB PO SCH ×2 (09:00→20:24)
[2017-08-14] MEDS: MAGNESIUM HYDROXIDE SUSP 30 ML CUP PO SCH ×2 (09:00→20:24)
[2017-08-14] MEDS: RESP: ALBUTEROL 2.5 MG/IPRATROPIUM 0.5 MG NEB (SCH) NEB ×4 (09:11→19:40)
[2017-08-14] MEDS: LIDOCAINE HCL 5% PATCH T-DERMAL SCH (10:15)
[2017-08-14] MEDS: ACETAMINOPHEN 650 MG/20.3 ML UDC PO PRN ×2 (10:16→20:35)
[2017-08-14] MEDS: CHLORHEXIDINE GLUCONATE 0.12% 15 ML CUP SWISH-SPIT SCH ×2 (10:17→20:26)
[2017-08-14] MEDS: BACITRACIN TOP OINT 15 GM TUBE TOPICAL SCH (10:18)
[2017-08-14] MEDS: fentaNYL 25 MCG/HR PATCH T-DERMAL SCH (10:18)
[2017-08-14] MEDS: oxyCODONE HCL ORAL CONC 5 MG/0.25 ML SYRINGE PO PRN ×2 (10:21→16:00)
[2017-08-14] MEDS: ENOXAPARIN SODIUM 30 MG/0.3 ML SYRINGE SQ SCH ×2 (11:21→22:35)
[2017-08-14] MEDS ORDERED: IOHEXOL 350 MG/ML 10 ML VIAL (for RAD DIAG) IVCONTRAST ONE (12:04)
--- NOTE | 2017-08-14 12:14 | RADRPT ---
EXAM DATE/TIME: 08/14/2017 11:57 [place] COMPARISON: CT ABDOMEN & PELVIS W CONTRAST, August 07, 2017, 11:21. INDICATIONS : Follow up liver laceration. IV CONTRAST: 85 cc Omnipaque 350 (iohexol) IV ORAL CONTRAST: No oral contrast ingested. RADIATION DOSE: 4.79 CTDIvol (mGy) MEDICAL HISTORY : Liver laceration. SURGICAL HISTORY : Liver laceration repair. ENCOUNTER: Subsequent ACUITY: 1 week PAIN SCALE: 2/10 LOCATION: Right upper quadrant TECHNIQUE: Volumetric scanning of the abdomen was performed. Using automated exposure control and adjustment of the mA and/or kV according to patient size, radiation dose was kept as low as reasonably achievable to obtain optimal diagnostic quality images. DICOM format image data is available electronically for review and comparison. FINDINGS: LOWER LUNGS: Bibasilar consolidation and small pleural effusions.. LIVER: Prominent laceration involving the lateral left lobe again seen. Low-density involving the lateral le ft lobe noted. There is also laceration along the posterior segment of the right lobe with adjacent h emorrhage which is intimately associated with the adrenal gland and superior pole right kidney SPLEEN: Normal size without lesion. PANCREAS: Within normal limits. KIDNEYS: The several low densities along the lower right kidney again noted. There is some hemorrhage along th e superior aspect of the kidney and adjacent to the adrenal gland. Left kidney unremarkable. There is hemoperitoneum which does appear less prominent. ADRENAL GLANDS: Within normal limits. AORTA/RETROPERITONEAL: There is no aneurysm or lymphadenopathy. BOWEL/MESENTERY: The stomach and visualized small and large bowel demonstrate no abnormality. ABDOMINAL WALL: Within normal limits. MUSCULOSKELETAL: Within normal limits for patient age. POST CONTRAST: No abnormal areas of enhancement are seen. CONCLUSION: 1. Evolving laceration involving the lateral left lobe. 2. Hemorrhage just superior to the right kidney and intimately associated with the adrenal gland like ly related to the adjacent liver laceration. No extravasation of contrast. 3. No extravasation seen. 4. Hemoperitoneum appears less prominent. 5. Bibasilar consolidation with small pleural effusions. Micheal Tyler MD on August 14, 2017 at 12:07 Board Certified Radiologist. This report was verified electronically.
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
[2017-08-14] MEDS: REMOVE OLD LIDOCAINE PATCH T-DERMAL SCH (20:27)
[2017-08-15] VITALS (7 sets, daily range): BP systolic 120–134; BP diastolic 73–96; PULSE 83–119; RESP 20–34; TEMP 98.9–100.7; O2SAT 94–100
[2017-08-15] MEDS: oxyCODONE HCL ORAL CONC 5 MG/0.25 ML SYRINGE PO PRN ×3 (01:16→20:49)
[2017-08-15 05:04] LABS: AUTOMATED NEUTROPHIL # 9.7 TH/MM3 (1.8-7.7); BASOPHIL % 0.1 % (0.0-2.0); EOSINOPHIL # 0.1 TH/MM3 (0-0.4); EOSINOPHIL % 0.6 % (0.0-4.0); HEMATOCRIT 27.4 % (35.0-46.0); HEMOGLOBIN 9.4 GM/DL (11.6-15.3); LYMPH % 13.9 % (9.0-44.0); LYMPHOCYTE # 1.7 TH/MM3 (1.0-4.8); MEAN CELL VOLUME 74.9 FL (80.0-100.0); MEAN CORPUSCULAR HEMOGLOBIN 25.7 PG (27.0-34.0); MEAN CORPUSCULAR HGB CONC 34.3 % (32.0-36.0); MEAN PLATELET VOLUME 8.5 FL (7.0-11.0); MONO % 7.6 % (0.0-8.0); MONOCYTE # 0.9 TH/MM3 (0-0.9); NEUT % 77.8 % (16.0-70.0); PLATELET COUNT 154 TH/MM3 (150-450); RED BLOOD COUNT 3.66 MIL/MM3 (4.00-5.30); RED CELL DISTRIBUTION WIDTH 25.5 % (11.6-17.2); WHITE BLOOD COUNT 12.5 TH/MM3 (4.0-11.0)
[2017-08-15 05:10] LABS: ALBUMIN 2.4 GM/DL (3.4-5.0); ALKALINE PHOSPHATASE 122 U/L (45-117); ALT (GPT) 107 U/L (9-42); AST (GOT) 56 U/L (16-38); BICARBONATE 22.6 MEQ/L (21.0-32.0); BLOOD UREA NITROGEN 4 MG/DL (7-18); CALCIUM 7.6 MG/DL (8.5-10.1); CHLORIDE 105 MEQ/L (98-107); CREATININE 0.36 MG/DL (0.50-1.00); GLOMERULAR FILTRATION RATE 230 ML/MIN (>89); GLUCOSE,RANDOM 99 MG/DL (74-106); SODIUM (NA) 139 MEQ/L (136-145); TOTAL BILIRUBIN ADULT 1.6 MG/DL (0.2-1.0); TOTAL PROTEIN 5.6 GM/DL (6.4-8.2)
[2017-08-15 06:49] LABS: BANDS 8 % (0-6); LYMPHOCYTES 5 % (9-44); METAMYELOCYTES 4 % (0-1); MONOCYTES 5 % (0-8); MYELOCYTES 1 % (0-0); NEUTROPHIL # MANUAL DIFF 11.3 TH/MM3 (1.8-7.7); POLYS (SEG NEUTROPHILS) 77 % (16-70)
[2017-08-15 06:50] LABS: TEARDROP RBCS 1+ (NORMAL)
[2017-08-15] MEDS ORDERED: POTASSIUM CHLORIDE 25 MEQ EFFERVESCENT TAB PO ONE ×2 (07:00→14:00)
[2017-08-15] MEDS: BACITRACIN TOP OINT 15 GM TUBE TOPICAL SCH (09:00)
[2017-08-15] MEDS: DOCUSATE SODIUM 50 MG/SENNA 8.6 MG TAB PO SCH ×2 (09:43→20:45)
[2017-08-15] MEDS: LIDOCAINE HCL 5% PATCH T-DERMAL SCH (09:43)
[2017-08-15] MEDS: MAGNESIUM HYDROXIDE SUSP 30 ML CUP PO SCH ×2 (09:44→20:45)
[2017-08-15] MEDS: ENOXAPARIN SODIUM 30 MG/0.3 ML SYRINGE SQ SCH ×2 (11:00→23:27)
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
[2017-08-15] MEDS ORDERED: POTASSIUM PHOSPHATE MONOBASIC 500 MG TAB PO ONE (16:00)
[2017-08-15] MEDS: CHLORHEXIDINE GLUCONATE 0.12% 15 ML CUP SWISH-SPIT SCH ×2 (17:37→20:47)
[2017-08-15] MEDS: REMOVE OLD LIDOCAINE PATCH T-DERMAL SCH (20:47)
[2017-08-16] VITALS (9 sets, daily range): BP systolic 114–135; BP diastolic 70–90; PULSE 83–123; RESP 20–27; TEMP 97.9–100.8; O2SAT 96–100
[2017-08-16] MEDS: oxyCODONE HCL ORAL CONC 5 MG/0.25 ML SYRINGE PO PRN (04:13)
[2017-08-16 07:04] LABS: BICARBONATE 20.3 MEQ/L (21.0-32.0); CREATININE 0.34 MG/DL (0.50-1.00)
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
[2017-08-16] MEDS: MAGNESIUM HYDROXIDE SUSP 30 ML CUP PO SCH ×2 (08:36→20:39)
[2017-08-16] MEDS: CHLORHEXIDINE GLUCONATE 0.12% 15 ML CUP SWISH-SPIT SCH ×2 (08:36→20:39)
[2017-08-16] MEDS: DOCUSATE SODIUM 50 MG/SENNA 8.6 MG TAB PO SCH ×2 (08:36→20:39)
[2017-08-16] MEDS: BACITRACIN TOP OINT 15 GM TUBE TOPICAL SCH (08:37)
[2017-08-16] MEDS: LIDOCAINE HCL 5% PATCH T-DERMAL SCH (08:38)
[2017-08-16] MEDS ORDERED: POTASSIUM CHLOR 10 MEQ PREMIX 100 ML IV SCH (09:00)
[2017-08-16] MEDS ORDERED: POTASSIUM CHLOR 10 MEQ IV SCH (09:00)
[2017-08-16] MEDS ORDERED: POTASSIUM CHLORIDE 25 MEQ EFFERVESCENT TAB PO PRN (10:15)
[2017-08-16] MEDS ORDERED: POTASSIUM CHLORIDE 25 MEQ EFFERVESCENT TAB PO ONE ×2 (10:15→14:00)
[2017-08-16] MEDS: ENOXAPARIN SODIUM 30 MG/0.3 ML SYRINGE SQ SCH ×2 (11:27→23:50)
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
[2017-08-16] MEDS: ACETAMINOPHEN 650 MG/20.3 ML UDC PO PRN (20:34)
[2017-08-16] MEDS: REMOVE OLD LIDOCAINE PATCH T-DERMAL SCH (20:44)
[2017-08-17] VITALS: BP 115/71; PULSE 86; RESP 28; TEMP 99.8; O2SAT 97
[2017-08-17 00:13] VITALS: PULSE 93
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
[2017-08-17 04:00] VITALS: BP 143/90; PULSE 89; PULSE 90; RESP 28; TEMP 100.7; O2SAT 98
[2017-08-17 04:08] LABS: AUTOMATED NEUTROPHIL # 9.6 TH/MM3 (1.8-7.7); BASOPHIL % 0.3 % (0.0-2.0); EOSINOPHIL # 0.1 TH/MM3 (0-0.4); EOSINOPHIL % 0.5 % (0.0-4.0); HEMOGLOBIN 9.7 GM/DL (11.6-15.3); LYMPH % 17.7 % (9.0-44.0); LYMPHOCYTE # 2.3 TH/MM3 (1.0-4.8); MEAN CELL VOLUME 75.3 FL (80.0-100.0); MEAN CORPUSCULAR HEMOGLOBIN 25.1 PG (27.0-34.0); MEAN CORPUSCULAR HGB CONC 33.3 % (32.0-36.0); MEAN PLATELET VOLUME 8.1 FL (7.0-11.0); MONO % 6.7 % (0.0-8.0); MONOCYTE # 0.9 TH/MM3 (0-0.9); NEUT % 74.8 % (16.0-70.0); PLATELET COUNT 206 TH/MM3 (150-450); RED BLOOD COUNT 3.86 MIL/MM3 (4.00-5.30); RED CELL DISTRIBUTION WIDTH 25.6 % (11.6-17.2); WHITE BLOOD COUNT 12.8 TH/MM3 (4.0-11.0)
[2017-08-17 04:29] LABS: BICARBONATE 22.3 MEQ/L (21.0-32.0); CREATININE 0.37 MG/DL (0.50-1.00)
[2017-08-17] MEDS: ACETAMINOPHEN 650 MG/20.3 ML UDC PO PRN (05:18)
[2017-08-17 07:10] LABS: BANDS 6 % (0-6); BASOPHILS 1 % (0-2); LYMPHOCYTES 11 % (9-44); METAMYELOCYTES 1 % (0-1); MONOCYTES 7 % (0-8); MYELOCYTES 2 % (0-0); NEUTROPHIL # MANUAL DIFF 10.4 TH/MM3 (1.8-7.7); POLYS (SEG NEUTROPHILS) 72 % (16-70)
[2017-08-17 07:11] LABS: KERATOCYTES OCC (NORMAL); OVALOCYTES 1+ (NORMAL)
[2017-08-17 08:00] VITALS: BP 121/86; PULSE 92; PULSE 99; RESP 26; TEMP 98; O2SAT 100
[2017-08-17] MEDS: LIDOCAINE HCL 5% PATCH T-DERMAL SCH (08:07)
[2017-08-17] MEDS: CHLORHEXIDINE GLUCONATE 0.12% 15 ML CUP SWISH-SPIT SCH (08:08)
[2017-08-17] MEDS: REMOVE OLD PATCH T-DERMAL SCH (08:08)
[2017-08-17] MEDS: fentaNYL 25 MCG/HR PATCH T-DERMAL SCH (08:08)
[2017-08-17] MEDS: DOCUSATE SODIUM 50 MG/SENNA 8.6 MG TAB PO SCH (08:08)
[2017-08-17] MEDS: MAGNESIUM HYDROXIDE SUSP 30 ML CUP PO SCH (08:08)
[2017-08-17] MEDS: BACITRACIN TOP OINT 15 GM TUBE TOPICAL SCH (08:09)
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
[2017-08-17 09:25] LABS: MAGNESIUM 2.2 MG/DL (1.5-2.5)
[2017-08-17] MEDS ORDERED: PERI PO (10:24)
[2017-08-17] MEDS ORDERED: MAGN30S PO (10:24)
[2017-08-17] MEDS ORDERED: oxyCODONE LIQ PO (10:36)
[2017-08-17] MEDS ORDERED: Chlorhexidine 0.12% Liq SWISH-SPIT (10:36)
[2017-08-17] MEDS: ENOXAPARIN SODIUM 30 MG/0.3 ML SYRINGE SQ SCH (10:48)
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
== END 2017-08-17 12:00 | disposition home or self-care (01) | DRG 957 ==
LOC: NEPI 11:07 → EDBD 11:36 → NEDA 11:36 → N03A 14:14 → N03B 08-11 11:45
PROVIDERS: ADMIT Surgery; ATTEND Surgery
PROC: 04L30ZZ Occlusion of Hepatic Artery, Open Approach (ICD-10-PCS; 2017-08-07)
PROC: 0W9G0ZZ Drainage of Peritoneal Cavity, Open Approach (ICD-10-PCS; 2017-08-07)
PROC: 5A1945Z Respiratory Ventilation, 24-96 Consecutive Hours (ICD-10-PCS; 2017-08-07)
PROC: 30233R1 Transfusion of Nonautologous Platelets into Peripheral Vein, Percutaneous Approach (ICD-10-PCS; 2017-08-07)
PROC: 30233N1 Transfusion of Nonautologous Red Blood Cells into Peripheral Vein, Percutaneous Approach (ICD-10-PCS; 2017-08-07)
PROC: 0FB00ZZ Excision of Liver, Open Approach (ICD-10-PCS; principal; 2017-08-07 11:48)
PROC: 0FJ00ZZ Inspection of Liver, Open Approach (ICD-10-PCS; 2017-08-08)
PROC: 3E1M38Z Irrigation of Peritoneal Cavity using Irrigating Substance, Percutaneous Approach (ICD-10-PCS; 2017-08-08)
PROC: 0NSTXZZ Reposition Right Mandible, External Approach (ICD-10-PCS; 2017-08-08)
PROC: 0CQ7XZZ Repair Tongue, External Approach (ICD-10-PCS; 2017-08-08)
PROC: 0HQ1XZZ Repair Face Skin, External Approach (ICD-10-PCS; 2017-08-08)
PROC: 0HQ4XZZ Repair Neck Skin, External Approach (ICD-10-PCS; 2017-08-08)
PROC: 0CDXXZ1 Extraction of Lower Tooth, Multiple, External Approach (ICD-10-PCS; 2017-08-08)
PROC: 0NSV04Z Reposition Left Mandible with Internal Fixation Device, Open Approach (ICD-10-PCS; 2017-08-08 15:14)
DX: S36.116A Major laceration of liver, initial encounter (principal); J96.00 Acute respiratory failure, unspecified whether with hypoxia or hypercapnia; S27.321A Contusion of lung, unilateral, initial encounter; S22.41XA Multiple fractures of ribs, right side, initial encounter for closed fracture; S02.66XA Fracture of symphysis of mandible, initial encounter for closed fracture; T79.4XXA Traumatic shock, initial encounter; E87.3 Alkalosis; S36.81XA Injury of peritoneum, initial encounter; I82.612 Acute embolism and thrombosis of superficial veins of left upper extremity; S37.031A Laceration of right kidney, unspecified degree, initial encounter; S02.612A Fracture of condylar process of left mandible, initial encounter for closed fracture; S02.611A Fracture of condylar process of right mandible, initial encounter for closed fracture; S02.670A Fracture of alveolus of mandible, unspecified side, initial encounter for closed fracture; S06.0X9A Concussion with loss of consciousness of unspecified duration, initial encounter; E87.6 Hypokalemia; E83.51 Hypocalcemia; S01.81XA Laceration without foreign body of other part of head, initial encounter; S11.91XA Laceration without foreign body of unspecified part of neck, initial encounter; S01.512A Laceration without foreign body of oral cavity, initial encounter; K08.89 Other specified disorders of teeth and supporting structures; S51.812A Laceration without foreign body of left forearm, initial encounter; D64.9 Anemia, unspecified; S81.011A Laceration without foreign body, right knee, initial encounter; V95.8XXA Other powered aircraft accidents injuring occupant, initial encounter
CPT/HCPCS: 36430; 36600; 43752; 70450; 70486; 71045; 71260; 72125; 72170; 74018; 74160; 74177; 76377; 76937; 80048; 80053; 82140; 82805; 83735; 84100; 84132; 85007; 85025; 85027; 85384; 85610; 85730; 86850; 86900; 86901; 86920; 86965; 87040; 90471; 90715; 93971; 94002; 94003; 94640; 94664; 94667; 96374; 99291; C1713; C9113; G0390; J0131; J0690; J1040; J1100; J1650; J2250; J2270; J2370; J2405; J2543; J2930; J3010; J3480; J7030; J7040; J7120; P9016; P9017; P9035; P9045; Q9967